=== PATIENT | male | born 1995 | race Caucasian/White ===

== ENCOUNTER 2021-07-18 03:56 | Emergency (ER) | payer OTHER, SELFPAY ==
--- NOTE | ~2021-07-18 | XR_ITS ---
EXAMINATION: XR patella RT DATE: 07/18/2021 05:09 INDICATION: Anterior knee pain. TECHNIQUE: 2 views of right patella were obtained. COMPARISON: None. FINDINGS: Bone alignment is normal. No fracture. Joint spaces are well maintained. No knee joint effu martha. IMPRESSION: 1. No fracture. Reviewed, dictated and finalized at location A. IMPRESSION: 1. No fracture.
--- NOTE | ~2021-07-18 | XR_ITS ---
EXAMINATION: XR knee RT min 4V DATE: 07/18/2021 05:08 INDICATION: Anterior right knee pain. Fall. TECHNIQUE: 4 views of right knee were obtained. COMPARISON: None. FINDINGS: Bone alignment is normal. No fracture. Joint spaces are well maintained. There is no knee j oint effusion. IMPRESSION: 1. No fracture. Reviewed, dictated and finalized at location A. IMPRESSION: 1. No fracture.
[2021-07-18 04:00] VITALS: BP 113/90; PULSE 100; RESP 20; TEMP 36.6; O2SAT 98
--- NOTE | 2021-07-18 04:38 | ED.LOWEXIN ---
HPI - Extremity Injury (Lower) General Chief Complaint: Extremity Injury, Lower Stated Complaint: Knee pain Time Seen by Provider: 07/18/21 04:32 Source: RN notes reviewed History of Present Illness HPI Narrative: Patient presents emergency department from home for right knee pain. Patient states this evening he slipped and fell landing directly onto his right knee. States since that time has had swelling ecchymosis to the right knee states he notes pain with ambulating as well as bending the knee states did take ibuprofen for pain with minimal relief he denies any other trauma or injury denies any numbness or tingling to the extremity Related Data Allergies Allergy/AdvReac Type Severity Reaction Status Date / Time No Known Drug Allergies Allergy Unknown Verified 04/13/15 20:01 Review of Systems Review of Systems: Gen.: Denies fevers or chills Musculoskeletal: See HPI Neuro: Denies numbness, tingling, weakness Skin: Denies rash Endo: Denies DM PMFSH Past Medical History Medical History (Updated 07/18/21 @ 05:01 by Braeden Aguirre DO) Patient denies significant medical history Social History Social History (Updated 07/18/21 @ 04:39 by Braeden Aguirre DO) Smoking status: Never smoker Exam Narrative: APPEARANCE: No acute distress, nontoxic, resting in bed Eyes: EOMI HEENT: Normocephalic, atraumatic, RESPIRATORY: No respiratory distress MUSCULOSKELETAl: Tender palpation of the right anterior knee with swelling and ecchymosis, no tenderness of the medial lateral posterior knee, pain with flexion greater than 45 degrees, no tenderness of the right hip or ankle posterior tibialis pulse 2+ NEURO: Awake and alert. Following commands, speech normal, no focal deficits SKIN:: Warm, dry. Normal Color no rash or lesions Course Course Emergency Course: Discussed with patient results of workup and diagnosis. Discussed need for follow-up with primary care, proper use of medication, and reasons to return to the emergency department. Patient understands and agrees to current treatment plan Vital Signs Vital signs: Vital Signs Temperature 97.8 F 07/18/21 04:00 Pulse Rate 100 07/18/21 04:00 Respiratory Rate 20 07/18/21 04:00 Blood Pressure 113/90 07/18/21 04:00 Pulse Oximetry 98 07/18/21 04:00 Temperature 97.8 F 07/18/21 04:56 Pulse Rate 70 07/18/21 04:56 Respiratory Rate 16 07/18/21 04:56 Blood Pressure 113/70 07/18/21 04:56 Pulse Oximetry 99 07/18/21 04:56 MDM - Extremity Injury (Lower) Imaging Data Attestation: I personally reviewed and interpreted this imaging study as follows: My impression: Right knee x-ray reviewed by myself shows no acute fracture L x-ray reviewed myself shows no acute fracture Discharge Plan Discharge Clinical Impression: Contusion of knee, right Patient Disposition: Home, Self-Care Condition: Stable Instructions: Antibiotic Form, Contusion in Adults (ED) Additional Instructions: Return for increasing pain numbness or tingling in the extremities or any other symptoms of concern Prescriptions: New ibuprofen [IBU] 600 mg tablet 600 mg PO Q6H PRN (Reason: pain) Qty: 20 RF: 0 Follow-up/Referrals: PHYSICIAN,SODA TESTER [Primary Care Provider] - Miguel Gonzales MD [Physician] - (Follow-up in 1-2 days for further on-call physician treatment and evaluation) Time of Disposition: 05:01
[2021-07-18 04:56] VITALS: BP 113/70; PULSE 70; RESP 16; TEMP 36.6; O2SAT 99
== END 2021-07-18 05:31 | disposition home or self-care (01) ==
LOC: ANHED 05:12
PROVIDERS: Emergency Provider Emergency Medicine
DX: S80.01XA Contusion of right knee, initial encounter (principal); W01.0XXA Fall on same level from slipping, tripping and stumbling without subsequent striking against object, initial encounter
CPT/HCPCS: 73560; 73564; 99283

== ENCOUNTER 2025-04-29 16:38 | Emergency (ER) | payer OTHER, SELFPAY ==
--- OUTSIDE RECORDS SUMMARY | 2025-04-29 16:40 | XMS_ITS | Referral Summary ---
Author Organization [facility] Address [address] [place] [address] Care Team Providers Care Chronic Disease Epidemiologist Name Role Phone Unavailable Primary Care Provider Unavailabl e Allergies No known active allergies Medications ibuprofen (ADVIL,MOTRIN) 600 mg tablet Take 1 tablet (600 mg total) by mouth every 6 (six) hours as needed 04/23/2014 Active naproxen (ANAPROX DS) 550 mg tablet naproxen sodium 550 mg tablet 04/05/2016 Active ergocalciferol (VITAMIN D) 50,000 unit capsule Take 1 capsule (50,000 Units total) by mouth once a week 12 capsule 1 11/01/2023 Active dextroamphetami ne-amphetamine XR (ADDERALL XR) 25 mg 24 hr capsule Take 1 capsule (25 mg total) by mouth every morning 30 capsule 08/14/2024 Active Active Problems Problem Noted Date Diagnosed Date Attention deficit hyperactiv ity disorder, combined type, mild 09/10/2019 Assessment & Plan (01/15/2024 3:02 PM CDT): Doing well on the Adderall XR 25 mg daily. Negative side effects except for mild dry mouth. Assessment & Plan (10/14/2023 9:46 AM ELECTRONIC PREPRESS OPERATOR): Has improved but not totally at goal, will increase to 25 mg. Side effects include dry mouth, has lost weight but not d/t decreased appetite. He has been decreasing food intake d/t budget. Assessment & Plan (08/29/2023 10:40 AM ELECTRONIC PREPRESS OPERATOR): Improvement noted but not at goal, will increase the Adderall XR to 20 mg daily. Follow up in 4 weeks. Assessment & Plan (07/29/2023 11:35 AM CDT): Used to be on Methylphenidate 54 mg daily but has been off x 8-10 months d/t insurance. Has 2 semesters left through [employer] and has been struggling. Executive dysfunction is the biggest issue. Struggles completing tasks, especially with school, even with day to day activities. Will get records and CAARS form today in office, will score to confirm diagnosis and likely restart patient's Concerta. 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 Resolved Problems Problem Noted Date Diagnosed Date Resolved Date Asthma 07/29/2023 07/29/2023 Immunizations Immunization Administration Dates Next Due DTP / HiB 07/20/1998,04/29/1998,1997 DTaP 06/04/2003, 9,07/20/1998,04/29,1997 HPV, Quadrivalent 05/02/2016,12/08/2014,05/29/20 13 HPV9 01/16/2022,11/13/2021,05/10/2016 Hep A, 3 Dose 03/19/2007,01/23/2006 Hep A, Ped Unspecified 03/19/2007,01/23/2006 Hep B, Adolescent or Pediatric 8,04/29/1998,1997,10/25 HiB 01/24/1999,01/24/1999 IPV 06/04/2003, 8,04/29/1998,12/22 Influenza, Quadrivalent, Spl it, Preservative Free, Intramuscular 08/03/2019 Influenza, Unspecified 08/28/2023(Deferr ed: Patient Refused),07/29/2023(Deferred: Patient Refused),09/30/2022(Deferred: Patient Refused),09/30/2022(Deferred: Patient Refused),09/30/2022(Deferred: Patient Refused),06/17/2009 MMR 06/04/2003,01/24/1999 Meningococcal B, OMV (Bexsero) 05/02/2016 Meningococcal Conjugate (Menveo) 12/08/2014 Meningococcal MCV4, Unspecified 06/17/2009 Td, adsorbed 08/03/2019 Tdap 06/17/2009 Varicella 06/17/2009,07/03/2002 Social History Tobacco Use Types Packs/Day Years Used Date Smoking Tobacco: Every Day Vaping Passive Smoke Exposure: Current Smokeless Tobacco: Never Tobacco Cessation:Ready to Q uit: Not Asked; Counseling Given: Not Answered PHQ-2 Answer Date Recorded PHQ-2 Total Score (If total score is 3 or more points, staff should administer the PHQ-9) 0 01/15/2024 Personal Safety Answer Date Recorded Getting School Help Needed Not on file 09/09 Sex and Gender Information Value Date Recorded Sex Assigned at Not on file Legal Sex Male 5:04 PM ELECTRONIC PREPRESS OPERATOR Gender Identity Male 12/05/2023 3:41 PM ELECTRONIC PREPRESS OPERATOR Sexual Orientation Not on file Last Filed Vital Signs Vital Sign Reading Time Taken Comments Blood Pressure 102/60 01/15/2024 2:39 PM CDT Pulse 89 01/15/2024 2:39 PM CDT Temperature 36.3 C (97.3 F) 01/15/2024 2:39 PM CDT Respiratory Rate 20 10/14/2023 8:39 AM ELECTRONIC PREPRESS OPERATOR Oxygen Saturation 98% 01/15/2024 2:39 PM CDT Inhaled Oxygen Concentration - - Weight 87.5 kg (193 lb) 01/15/2024 2:39 PM CDT Height 172.7 cm (5' 8) 01/15/2024 2:39 PM CDT Body Mass Index 29.35 01/15/2024 2:39 PM CDT Plan of Treatment Not on file
--- OUTSIDE RECORDS SUMMARY | 2025-04-29 16:40 | XMS_ITS | Clinical Summary ---
Author Organization [facility] Address [address] [place] [address] Care Team Providers Care Web Marketing Specialist Name Role Phone Unavailable Primary Care Provider Unavailabl e Source Comments [facility],non-owned Affiliates and Associated Physician Practices is amultiple site organization consisting of ambulatory clinics and hospital sitesin [place], [place], [place] and [place]. This disclosure is being madepursuant to the Care Everywhere program and may not contain all information available regarding this patient. Last updated 18.[facility] Allergies Active Allergy Reactions Criticality Noted Date Comments Rizatriptan Systemic Medium 12/02/2014 Other 04/20/2013 seasonal Sumatriptan Myalgias Medium 03/02/2015 Medications * Be aware that medications may not be up to date on this document. Alwaysverify current medications with the patient. ibuprofen (MOTRIN) 600 MG tabletIndicatio ns:Vascular Headache Take 1 Tab by mouth every 6 hours as needed for Pain (at onset of mild to moderate headache). Indications: Vascular Headache 30 Tab 1 4 Active rizatriptan (MAXALT) 10 MG tablet Take 1 Tab by mouth once as needed for Migraine (may repeat in 2 hours if needed.) for up to 1 dose. 12 Tab 6 5 Active topiramate (TOPAMAX) 25 MG tabletIndicatio ns:Migraine Take 1 tab at bedtime for 2 weeks, then take 2 tabs. Indications: Migraine Headache 60 Tab 4 5 Active almotriptan (AXERT) 12.5 MG tablet Take 1 Tab by mouth once as needed (Take at beginning of migraine.) for up to 1 dose. 12 Tab 4 5 Active naratriptan (AMERGE) 2.5 MG tabletIndicatio ns:Migraine Take 1 Tab by mouth once as needed for Migraine (May repeat in 2 hours if needed.) Reasons: Migraine Headache 12 Tab 2 6 Active naproxen sodium (ANAPROX DS) 550 MG tablet Take 1 Tab by mouth 2 times daily as needed for Pain (Limit to 3 days per week.) 20 Tab 0 6 Active Active Problems No known active problems Family History Medical History Relation Name Comments Bipolar Disorder Father adhd Depression Father adhd Drug Abuse Father adhd Mental Health Father adhd Migraine Father adhd Migraine Maternal Grandmother Depression Mother Migraine Mother Migraine Sister Seizures Sister Relation Name Status Comments Father adhd Alive Maternal Grandmother Mother Sister Social History Tobacco Use Types Packs/Day Years Used Date Smoking Tobacco: Never Alcohol Use Standard Drinks/Week Comments No 0 (1 standard drink = 0.6 oz pur e alcohol) Sex and Gender Information Value Date Recorded Sex Assigned at Not on file Legal Sex Male 5:46 AM OFFSET LITHOGRAPHIC PRESS SETTER Gender Identity Not on file Sexual Orientation Not on file Last Filed Vital Signs Vital Sign Reading Time Taken Comments Blood Pressure 102/66 12/01/2014 9:56 AM OFFSET LITHOGRAPHIC PRESS SETTER Pulse 80 10/01/2013 10:33 AM OFFSET LITHOGRAPHIC PRESS SETTER Temperature - - Respiratory Rate 20 10/01/2013 10:33 AM OFFSET LITHOGRAPHIC PRESS SETTER Oxygen Saturation - - Inhaled Oxygen Concentration - - Weight 81.2 kg (179 lb 1.6 oz) 12/01/2014 9:56 A M OFFSET LITHOGRAPHIC PRESS SETTER Height 173.5 cm (5' 8.31) 12/01/2014 9:56 AM CS T Body Mass Index 26.99 12/01/2014 9:56 AM OFFSET LITHOGRAPHIC PRESS SETTER Plan of Treatment Health Maintenance Due Date Last Done Comments HIV SCREENING 2012 HEPATITIS C SCREENING 10/21/2015 DTAP/TDAP/TD VACCINES (1 - Tdap) 2016 HEPATITIS B VACCINE (1 of 3 - 19+ 3-dose series) 2016 COVID-19 VACCINE ( - 2023-2 5 season) 2024 DEPRESSION SCREENING 09/30/2024 HPV VACCINE (1 - 3-dose SCDM series) 2024 INFLUENZA VACCINE (#1) 2025 ZOSTER VACCINE (1 of 2) 2047 HIB VACCINE Aged Out No longer eligi ble based on patient's age to complete this topic MENINGOCOCCAL (Group B) VACC INE SHARED DECISION-MAKING Aged Out No longer eligibl e based on patient's age to complete this topic MENINGOCOCCAL GROUPS A/C/Y/W VACCINE Aged Out No longer eligible b ased on patient's age to complete this topic PNEUMOCOCCAL VACCINE Aged Out No long er eligible based on patient's age to complete this topic Insurance [employer] [place] MEDICA[place] - OUT OF [facility]
--- OUTSIDE RECORDS SUMMARY | 2025-04-29 16:40 | XMS_ITS | Clinical Summary ---
Author Organization [facility] Address [address] [place] [address] Phone Care Team Providers Care Cement Tile Maker Name Role Phone Unavailable Primary Care Provider Unavailabl e Allergies No known active allergies Medications naproxen sodium (ANAPROX) 550 MG Tablet naproxen sodium 550 mg tablet 04/05/2016 Active ondansetron (ZOFRAN) 4 MG Tablet Take 1 Tab by mouth every 8 hours as needed for Nausea - 1st line. 10 Tab 09/20/2019 Active famotidine (PEPCID) 20 MG Tablet Take 1 Tab by mouth 2 times daily as needed (nausea and vomiting). 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 08/13/2019 Chronic headache disorder 08/03/2019 Immunizations Immunization Administration Dates Next Due [id number] kathryn MCV4, Unspecif ied Formulation 06/17/2009 DTAP VACCINE 06/04/2003, 9,07/20/1998,04/29,1997 DTP-Hib 07/20/1998,04/29/1998,1997 Hepatitis A, Pediatric, Unsp ecified Formulation 03/19/2007,01/23/2006 Hepatitis B Vaccine, Pediatric/adolescent 07/20/1998,04/29/1998,1997,10/25 Hib Vaccine,unspecified Formulation 01/24/1999 Human Papillomavirus (HPV) 9 -valent Vaccine 05/10/2016 Human Papillomavirus Vaccine (HPV), quadrivalent 05/02/2016,12/08/2014,05/29/2013 Inactivated Polio Vaccine 06/04/2003,,04/29/1998,12/22 Influenza Vaccine, Quadrivalent, PF 08/03/2019 Influenza Vaccine,unspecifie d Formulation 06/17/2009 MMR Vaccine 06/04/2003,01/24/1999 Meningococcal Group B OMV 05/02/2016 Meningococcal MCV4O 12/08/2014 TD VACCINE 08/03/2019 TDAP Vaccine 06/17/2009 Varicella Vaccine Live 06/17/2009,07/03/2002 Family History Medical History Relation Name Comments Alzheimer's Disease Father Heart Disease Mother Relation Name Status Comments Father Alive Mother Alive Social History Tobacco Use Types Packs/Day Years Used Date Smoking Tobacco: Never Smokeless Tobacco: Never Alcohol Use Standard Drinks/Week Comments Never 0 (1 standard drink = 0.6 oz pur e alcohol) AUDIT-C Answer Date Recorded Frequency of Alcohol Consumption Never 07/30/2019 Average Number of Drinks Not on file 019 Frequency of Binge Drinking Not on file 07/02 PHQ-2 Answer Date Recorded PHQ-2 Score 0 07/30/2019 Sexually Active Control Partners Comments Yes Female Sex and Gender Information Value Date Recorded Sex Assigned at Not on file Legal Sex Male 9:20 PM CDT Gender Identity Not on file Sexual Orientation Not on file Last Filed Vital Signs Vital Sign Reading Time Taken Comments Blood Pressure 119/70 09/20/2019 5:15 PM RADIO MESSAGE ROUTER Pulse 92 09/20/2019 5:15 PM RADIO MESSAGE ROUTER Temperature 36.7 C (98.1 F) 09/20/2019 2:27 PM RADIO MESSAGE ROUTER Respiratory Rate 18 09/20/2019 5:15 PM RADIO MESSAGE ROUTER Oxygen Saturation 98% 09/20/2019 5:15 PM RADIO MESSAGE ROUTER Inhaled Oxygen Concentration - - Weight 95.3 kg (210 lb) 09/20/2019 2:27 PM RADIO MESSAGE ROUTER Height 172.7 cm (5' 8) 09/20/2019 2:27 PM RADIO MESSAGE ROUTER Body Mass Index 31.93 09/20/2019 2:27 PM RADIO MESSAGE ROUTER Plan of Treatment Health Maintenance Due Date Last Done Comments Hepatitis C Virus (HCV) Screening 1997 SARS-COV-2 Immunization ( season) 2024 01/19/2021, 12/29/2020 Influenza Immunization (#1) 2025 08/03/2019, 0 06/17/2009 DTaP/Tdap/Td Immunization (8 - Td or Tdap) 08/03/2029 08/03/2019, 06/17/2009, 06/04/2003, Additional history exists Respiratory Syncytial Virus (RSV) Immunization (Adult) (1 - 1-dose 75+ series) 2072 Hepatitis B Immunization Completed 998, 04/29/1998, 1997, Additional history exists Meningococcal Immunization (ACWY) Completed 12/08/2014, 06/17/2009 Meningococcal B Immunization Discontinued 05/02/2016 Human Papillomavirus (HPV) Immunization Completed 05/10/2016, 05/02/2016, 12/08/2014, Additional history exists Pneumococcal Immunization Combined Aged Out No longer eligible based on patient's age to complete this topic Rotavirus Immunization Aged Out No lo nger eligible based on patient's age to complete this topic Goals Goal Patient Goal Type Associated Problems Recent Progress Patient-Stated? Author figure out if I'm ADHD Behavioral Health No Mau Marti, [facility] Insurance MEDICAID [id number]
--- OUTSIDE RECORDS SUMMARY | 2025-04-29 16:40 | XMS_ITS | Clinical Summary ---
Author Organization [facility] Address [address] [place] [address] Care Team Providers Care Test Rack Operator Name Role Phone Unavailable Primary Care Provider [...] mouth. Assessment & Plan (10/14/2023 9:46 AM PROPERTY PORTFOLIO OFFICER): Has improved but not totally at goal, will increase to 25 mg. Side effects include dry mouth, has lost weight but not d/t decreased appetite. He has been decreasing food intake d/t budget. Assessment & Plan (08/29/2023 10:40 AM PROPERTY PORTFOLIO OFFICER): Improvement noted but not at goal, will [...] Td, adsorbed 08/03/2019 Tdap 06/17/2009 Varicella 06/17/2009,07/03/2002 Medical History Medical History Date Comments Adhd Asthma Migraines Asthma 07/29/2023 Family History Medical History Relation Name Comments ADD / ADHD Father Bipolar disorder Mother Diabetes Sister Sera Relation Name Status Comments Father Mother Sister Sera Alive Social History Tobacco Use Types Packs/Day [...] on file Legal Sex Male 5:04 PM PROPERTY PORTFOLIO OFFICER Gender Identity Male 12/05/2023 3:41 PM PROPERTY PORTFOLIO OFFICER Sexual Orientation Not on file Obstetrics History Last Filed Vital Signs Vital Sign Reading Time Taken Comments Blood Pressure 102/60 01/15/2024 2:39 PM CDT Pulse 89 01/15/2024 2:39 PM CDT Temperature 36.3 C (97.3 F) 01/15/2024 2:39 PM CDT Respiratory Rate 20 10/14/2023 8:39 AM PROPERTY PORTFOLIO OFFICER Oxygen Saturation 98% 01/15/2024 2:39 PM CDT Inhaled Oxygen Concentration - - Weight 87.5 kg (193 lb) 01/15/2024 2:39 PM CDT Height 172.7 cm (5' 8) 01/15/2024 2:39 PM CDT Body Mass Index 29.35 01/15/2024 2:39 PM CDT Plan of Treatment Health Maintenance Due Date Last Done Comments Hepatitis C Screening 1997 Regular Well Visit/Exam 18-64 2015 Pneumococcal vaccine <65 (1 of 2 - PCV) 2016 Covid-19 Vaccine (4 - 2023-2 5 season) 2024 10/31/2021, 01/19/2021, 12/29/2020 Depression Screening 01/14/2025 01/15/2024, 10/14/2023, 08/28/2023, Additional history exists Influenza Vaccine (#1) 2025 08/03/2019, 2008 DTaP/Tdap/Td Vaccine (8 - Td or Tdap) 08/03/2029 08/03/2019, 06/17/2009, 06/04/2003, Additional history exists Hepatitis B Screening Completed 07/20/1998 , 04/29/1998, 1997, Additional history exists Varicella Vaccines Completed 06/17/2009, 07/03/2002 HPV Vaccines Completed 01/16/2022, 10/31, 05/10/2016, Additional history exists
--- OUTSIDE RECORDS SUMMARY | 2025-04-29 16:40 | XMS_ITS | Encounter Summary ---
Author Organization [facility] - [facility] Address [facility] [place] [address] Care Team Providers Care Junior Account Executive Name Role Phone Sailaja Tan MD Primary Care Provider + Encounter Details Date Type Department Care Team (Late st Contact Info) Description 01/12/2025 eTippinghart Message Enc [facility] Family Medicine - [place] [address] [place] [phone] Sailaja Tan MD [address] [place] [phone] New Patient Medical Record - Jimmy Chin Social History Tobacco Use Types Packs/Day Years Used Date Smoking Tobacco: Never Assessed Sex and Gender Information Value Date Recorded Sex Assigned at Not on file Legal Sex Male 2:30 PM CDT Gender Identity Not on file Sexual Orientation Not on file documented as of this encounter Progress Notes * Sailaja Tan MD - 01/12/2025 3:46 PM CDT Yes, he can schedule first. It is a controlled medication so he would need to establish and follow all the usual rules for controlled substances. documented in this encounter Plan of Treatment Upcoming Encounters Date Type Department Care Team (Late st Contact Info) Description 05/06/2025 7:50 AM CDT Office Visit [facility] Family Medicine - [place] [address] [place], [place] [phone] Sailaja Tan MD [address] [place] [phone] documented as of this encounter Visit Diagnoses Not on filedocumented in this encounter Care Teams Junior Account Executive Relationship Specialty Start Date End Date Sailaja Tan MD [address] [place] [address] PCP - General FAMILY PRACTICE 03/08/25 documented as of this encounter
--- OUTSIDE RECORDS SUMMARY | 2025-04-29 16:40 | XMS_ITS | Clinical Summary ---
Author Organization [facility] Address On license of [facility] [place] [address] Care Team Providers Care Wet Trimmer Name Role Phone Sailaja Tan MD Primary Care Provider + Immunizations Immunization Administration Dates Next Due Dtap (Acel-Immune) 06/04/2003,01/24/1999 Dtp/Hib (Tetramune) 07/20/1998,04/29/1998,1997 HPV GARDASIL 9-VALENT 01/16/2022,11/13/2021,04/30 HPV4 (Gardasil) 05/02/2016,12/08/2014,05/29/2013 Hepatitis A (Generic) 03/19/2007,01/23/2006 Hepatitis B Pediatric 07/20/1998, 998,1997,10/01 Hib (Generic) 01/24/1999 Influenza (Generic) 06/17/2009 Influenza Adult (Generic) 08/03/2019 MENINGOCOCCAL A C Y&W-135 oligosaccharide (MENVEO) 12/08/2014 MMR (MMRII) 06/04/2003,01/24/1999 Meningcoccal Group B (Bexser o)(aka Meningitis) 05/02/2016 Meningococcal Vac A,C,Y,W-135 Sc 06/17/2009 Polio IPV (Ipol) 06/04/2003, 8,04/29/1998,11/29 Td (TDVAX) 08/03/2019 Tdap (Generic) 06/17/2009 Varicella (Varivax) 06/17/2009,07/03/2002 Social History Tobacco Use Types Packs/Day Years Used Date Smoking Tobacco: Never Assessed Sex and Gender Information Value Date Recorded Sex Assigned at Not on file Legal Sex Male 2:30 PM CDT Gender Identity Not on file Sexual Orientation Not on file Plan of Treatment Upcoming Encounters Date Type Department Care Team (Late st Contact Info) Description 05/06/2025 7:50 AM CDT Office Visit [facility] Family [facility] - [place] [address] [place] [id number] Sailaja Tan MD [address] [place] [address] Health Maintenance Due Date Last Done Comments Annual Physical 2000 Hepatitis C 2015 Meningococcal B Vaccine (2 of 2 - Bexsero SCDM 2-dose series) 11/02/2016 05/02/2016 COVID-19 Vaccine ( season) 2024 10/31/2021, 01/19/2021, 12/29/2020 PHQ-2 (Physician [place]) 09/30/2024 DTaP, Tdap and Td Vaccines (5 - Td or Tdap) 08/03/2029 08/03/2019, 06/17/2009, 06/04/2003, Additional history exists Hepatitis B Vaccines Completed 07/20/1998, 04/29/1998, 1997, Additional history exists Meningococcal Vaccine Completed 12/08/2014, 009 HPV Vaccines Completed 01/16/2022, 10/31, 05/10/2016, Additional history exists Pneumococcal Vaccine: Pediatrics (0 to 5 Years) and At-Risk Patients (6 to 49 Years) Aged Out No longer eligible based on patient's age to complete this topic RSV Immunizations Under 20 Months Aged Out No longer eligible based on patient's age to complete this topic Insurance WISDOM Care Teams Wet Trimmer Relationship Specialty Start Date End Date Sailaja Tan MD [address] [facility] [place] [address] PCP - General FAMILY PRACTICE 03/08/25
[2025-04-29 16:48] VITALS: BP 114/78; PULSE 94; RESP 18; TEMP 36.6; O2SAT 100
--- NOTE | 2025-04-29 17:12 | ED.SKABFB ---
HPI - Skin/Abscess/Foreign Bdy General Chief complaint: Skin/Abscess/Foreign Body Stated complaint: Sun burn Time Seen by Provider: 04/29/25 17:00 Source: patient and RN notes reviewed Mode of arrival: ambulatory Limitations: no limitations History of Present Illness HPI narrative: 29-year-old male presents Express Care complaining of some burn for approximately 3 days. Patient said he called in work today for the sunburn due to pain and says he has a work note to return. Patient reports he was at [employer] did not wear sunscreen and developed some burn to his shoulders upper back and upper arms. He reports blisters to his shoulders and pain. Patient has been using fbji-zas-[id number] aloe and uwzz-ata-hogtict topical anesthetic to help with pain. Patient denies any fevers, body aches, chills, nausea, vomiting, or any other symptoms. Related Data Allergies Allergy/AdvReac Type Severity Reaction Status Date / Time No Known Allergies Allergy Verified 04/29/25 17:02 Review of Systems Review of Systems: CONSTITUTIONAL: Denies fever, chills, or sweats. EYES: Denies visual changes, redness, or discharge. ENT: Denies rhinorrhea, congestion, sore throat, or otalgia. CARDIOVASCULAR: Denies chest pain, palpitations, or edema. RESPIRATORY: Denies cough or dyspnea. GASTROINTESTINAL: Denies abdominal pain, nausea, vomiting, or diarrhea. GENITOURINARY: Denies dysuria or hematuria. SKIN: Denies rash or itching. Positive for some burn blisters. MUSCULOSKELETAL: Denies back pain, joint pain, or myalgia. NEUROLOGIC: Denies headache, numbness, or weakness. PSYCHIATRIC: Denies anxiety or depression. All other systems reviewed are negative, except as documented in HPI. PMFSH Past Medical History Medical History (Updated 04/29/25 @ 17:08 by Earnest English APRN) Patient denies significant medical history Social History Social History (Updated 07/18/21 @ 04:39 by Braeden Aguirre, DO) Smoking status: Never smoker Comments At the time of my signature, I reviewed and agree with the nursing past medical, surgical, social, and family history. There is no relevant family history pertinent to the patient complaint. Exam Narrative: GENERAL: This is a well-nourished, well-developed adult, in no apparent distress. They are non ill-appearing, nontoxic appearing. HEAD: normocephalic, atraumatic. EYES: Sclera clear/white. Conjunctiva normal. Vision is grossly intact. Extraocular movements intact EARS: External ears normal, Hearing grossly intact. NOSE: External nose normal THROAT: Mucous membranes moist, NECK: Neck supple, CARDIOVASCULAR: Regular rate and rhythm RESPIRATORY: Respiratory rate normal, respiratory effort nonlabored, no respiratory distress GASTROINTESTINAL: Abdomen soft, non-tender, nondistended. Bowel sounds are active. No hepato-splenomegaly, or palpable masses. No guarding. SKIN: Skin is erythemic to the bilateral upper arms, shoulders, upper back and upper chest. Blisters present to the patient's bilateral shoulders. It is warm to touch, tender, and blanchable. Shoulders partial-thickness sun bar while the rest of the sunburn is superficial. No exudate, blurry fluctuance, no induration. NEURO: awake, alert, and oriented to person, place and time. There were no obvious focal neurologic abnormalities. EXTREMITIES: No joint tenderness, effusion, or edema noted. Course Course Emergency Course: Portions of this record may have been created with voice recognition software Level of Care: Express Care Visit Vital Signs Vital signs: Vital Signs Temperature 97.8 F 04/29/25 16:48 Pulse Rate 94 04/29/25 16:48 Respiratory Rate 18 04/29/25 16:48 Blood Pressure 114/78 04/29/25 16:48 Pulse Oximetry 100 04/29/25 16:48 Oxygen Delivery Room Air 04/29/25 16:48 Temperature 97.8 F 04/29/25 16:48 Pulse Rate 94 04/29/25 16:48 Respiratory Rate 18 04/29/25 16:48 Blood Pressure 114/78 04/29/25 16:48 Pulse Oximetry 100 04/29/25 16:48 Oxygen Delivery Room Air 04/29/25 16:48 Reviewed MDM - Skin/Abscess/Foreign Bdy MDM Narrative Medical decision making narrative: Patient has superficial partial thickness sun bar. Will prescribe patient Silvadene cream to apply to the blisters to prevent infection. Discussed physical exam findings. Advised supportive measures and signs/symptoms to go to the ER. Pt is appropriate for outpt treatment and f/u. Differential Diagnosis Differential diagnosis: Likely abscess of skin or subcutaneous tissue, cellulitis, contact dermatitis and other (Sunburn, partial-thickness burn, superficial burn, third-degree burn) Critical Care Time Critical Care Time Critical Care Time: No Discharge Plan Discharge Clinical Impression: Sunburn, second degree Patient Disposition: Home Condition: Stable Instructions: Antibiotic Form, Sunburn (ED), Second-Degree Burn (ED), Cold Compress or Soak (ED) Additional Instructions: The sunburn should resolve on its own in the next week or 2. Use Silvadene cream as directed. Apply to affected area. You may use cool compresses or soaks, calamine lotion, or aloe vera base chills for pain relief. You may apply lotion to intact skin to help moisturize. Ruptured blister should be gently clean with mild soap and water and covered with a wet dressing such as saline soaked gauze or petroleum based causes. Leave the skin of the blister intact and do not remove it. If any fluid remains in the blister please express it out. You may take Tylenol or ibuprofen as needed for pain. Follow-up with PCP in 3 to 5 days for wound recheck. Go to the ER for any signs of infection such as increased redness, swelling, green/yellow discharge, fevers, under dehydration, nausea, vomiting, or any other concerns Patient Language: Moroccan Prescriptions: New silver sulfadiazine [Silvadene] 1 % cream 1 applic topical BID 7 Days Qty: 50 0RF Rx Instructions: apply a 1.5 mm thickness Follow-up/Referrals: PHYSICIAN,PIPING SUPERVISOR [Primary Care Provider] - Stand Alone Forms: Work/School Release IP Time of Disposition: 17:08
== END 2025-04-29 17:25 | disposition home or self-care (01) ==
DX: L55.1 Sunburn of second degree (principal)
CPT/HCPCS: 99203; G0463